=== PATIENT | female | born 1955 | race Caucasian/White ===

== ENCOUNTER 2017-11-18 15:28 | Emergency (ER) | payer OTHER ==
[2017-11-18] MEDS ORDERED: ONDANSETRON 4 MG/2 ML VIAL ONE (16:00)
[2017-11-18] MEDS ORDERED: HYDROmorphONE/DILAUDID 1 MG/ML INJ ONE (16:01)
[2017-11-18] MEDS ORDERED: HYDROmorphONE/DILAUDID 1 MG/ML INJ IVP ONE (16:03)
[2017-11-18] MEDS ORDERED: ONDANSETRON 4 MG/2 ML VIAL IVP ONE (16:03)
[2017-11-18] MEDS ORDERED: PROPOFOL 200 MG/20 ML VIAL ONE (16:15)
--- NOTE | 2017-11-18 16:16 | EDPHY ---
HPI/HX/ROS/PE/MDM Narrative: CHIEF COMPLAINT: Right ankle injury HPI: The patient is a 62 y/o female arriving with her son complaining of right ankle pain and deformity after she "took a bad step off a 6-8" high deck" this afternoon. She thinks she may have sprained her left ankle as well, but has been able to bear weight on that foot. She denies head strike, loss of consciousness, or other injuries from the fall. No preceding symptoms. She is normally healthy. Her last PO intake was some candy at 1300, no recent large meal. REVIEW OF SYSTEMS: Aside from elements discussed in the HPI, a comprehensive 10-point review of systems was reviewed and is negative. PMH: Hypothyroidism SOCIAL HISTORY: Son at bedside. Lives in [place]. Employed. PHYSICAL EXAM: General:Patient is alert, in no acute distress. ENT:Eyes are normal to inspection. ENT inspection normal. Neck: Normal inspection. Full range of motion. Respiratory:No respiratory distress. Breath sounds normal bilaterally. Cardiovascular: Regular rate and rhythm. Strong peripheral pulses. Normal cap refill. Abdomen:The abdomen is nontender to palpation. There are no peritoneal signs. Back: Normal to inspection. No tenderness to palpation. Skin: Normal color. No rash. Warm and dry. Extremities: Dislocated and externally rotated right ankle, otherwise normal appearance and full range of motion. Neuro: Oriented x3. Normal motor function. Normal sensory function. ED Course: This is a healthy 62 y/o female who presents with obvious deformity to her right ankle secondary to a mechanical fall this afternoon. Right ankle is externally rotated with tenting of the skin over the medial aspect. She has normal distal pulses and normal capillary refill. No other visible trauma on exam. She is neurovascularly intact distal to the injury. Plan for IV, x-ray, conscious sedation, reduction, and splinting. 1mg IV Dilaudid and 4mg IV Zofran administered for pain. X-ray: right ankle dislocation, distal third fibular fracture Discussed indications and risks of sedation with the patient. Due to PO intake about 3 hours prior to arrival, offered to delay treatment to reduce aspiration risk, but patient would prefer to proceed with sedation and reduction now. Procedure: Conscious sedation. Indication: Fracture/dislocation reduction The patient is an appropriate candidate to tolerate procedural sedation. The patient's vitals signs and mental status are appropriate. The risks, benefits and alternatives of the sedation were discussed with the patient. The patient is ASA classification 1. The patient's Mallampati airway score was 1 and the patient did meet the 3-3-2 airway measurements. A time out was completed. The patient was sedated with 80mg IV Propofol. The patient was monitored with continuous pulse oximetry, classroom monitor and end tidal CO2. There were no complications and no significant hypoxemia. I performed both the sedation and the procedure. The total time I spent at the bedside during the procedural sedation was 20 minutes. The patient was examined after the procedural sedation and has returned to their pre-sedation baseline with normal vital signs and a normal examination. Procedure: Reduction of Fracture Dislocation of Ankle Time-out completed immediately before the procedure. IV established. O2 administered. Placed on pulse oximeter and ETCO2 monitor. Neurovascular exam intact pre-procedure. Given 1mg IV Dilaudid for pain and 80mg IV Propofol for sedation. The right laterally-rotated ankle fracture/dislocation was reduced using traction. Reassessed post-procedure. Neurovascular status intact-normal Motor and sensory exam. Exam indicated reduction. Confirmed reduction on X-ray. Splint applied by myself/tech. The procedure was performed by myself, Dr. Buck. Post-reduction x-ray: better alignment of ankle joint, medial and posterior malleolus fractures, fracture of distal third of fibula Patient will be discharged home in splint with ankle fracture care and follow up instructions. She understands she needs to follow up with orthopedist in the next week. Script for Vicodin provided. Return precautions discussed. She is comfortable with this plan. MDM: This patient presents with ankle/leg fracture/dislocation. Her injuries were reduced under conscious sedation and her neurovascular status is normal. There is no evidence of compartment syndrome. I explained to her that she will likely need surgery for this injury and will need to follow-up with orthopedics. We discussed warning signs for infection and compartment syndrome. - Data Points Imaging Results: Imaging Impressions Tibia/Fibula X-Ray 11/18/17 15:35 Impression: 1. Dislocation of the ankle with 90 degree rotation of the talus relative to the distal articular surface of the tibia. 2. Segmental comminuted fracture of the fibula with moderate medial angulation. 3. Fracture of the distal tibia of unclear origin. Imaging: I viewed and interpreted images myself Medications Given: Discontinued Medications Fentanyl (Sublimaze) 25 mcg IVP EDNOW ONE Stop: 11/18/17 16:44 Last Admin: 11/18/17 16:46 Dose: 25 mcg Hydromorphone HCl (Dilaudid) 1 mg IVP EDNOW ONE Stop: 11/18/17 16:04 Last Admin: 11/18/17 16:06 Dose: 1 mg Ondansetron HCl (Zofran) 4 mg IVP EDNOW ONE Stop: 11/18/17 16:04 Last Admin: 11/18/17 16:05 Dose: 4 mg Propofol (Diprivan) 80 mg IVP EDNOW ONE Stop: 11/18/17 16:35 Last Admin: 11/18/17 16:30 Dose: 80 mg General Time Seen by Provider: 11/18/17 15:56 Initial Vital Signs: Initial Vital Signs Temperature (C) 37.0 C 11/18/17 15:31 Heart Rate 93 11/18/17 15:31 Respiratory Rate 20 11/18/17 15:31 Blood Pressure 156/102 H 11/18/17 15:31 O2 Sat (%) 95 11/18/17 15:31 O2 Delivery Mode [Post Room Air Procedure 1st] O2 Delivery Mode [Procedural Non-Rebreather Mask 1st] O2 Delivery Mode [.Immediate Non-Rebreather Mask Pre-Procedure] O2 Delivery Mode Room Air O2 (L/minute) 15 Allergies/Adverse Reactions: naproxen [From Aleve] Allergy (Verified 11/18/17 15:31) Sulfa (Sulfonamide Antibiotics) Allergy (Verified 11/18/17 15:31) cats Allergy (Intermediate, Uncoded 10/02/15 10:41) Itching Home Medications: Medication Instructions Recorded Albuterol Hfa Anes Only [Proair 2 puffs IH QID #1 mdi 10/02/15 Hfa Anes Only] Azithromycin [Zithromax 250 mg 250 mg PO DAILY #6 tab 10/02/15 tab(RX)] Synthroid 10/02/15 Hydrocodone/APAP 5/325 [[place] 1 - 2 tab PO Q6H PRN #20 tab 11/18/17 5/325 (*)] oxyCODONE/APAP 5/325 [Percocet 1 - 2 tab PO Q6H PRN #20 tab 11/18/17 5/325 (*)] Departure - Departure Disposition: Home, Routine, Self-Care Clinical Impression: Fracture dislocation of right ankle, Fibula fracture Condition: Good Instructions: Hydrocodone/Acetaminophen (By mouth), Ankle Fracture (ED), Ankle Dislocation (ED) Additional Instructions: 1. Keep splint clean, dry, and in place until follow up with orthopedist. 2. Use Vicodin for pain as needed over the next several days. This medication can make you drowsy and constipated. Do not use while driving. 3. Use crutches, do not bear weight on affected ankle. 4. Follow up with orthopedist in the next week. You may need surgery. 5. Return to the ED for severe pain, dramatic increase in swelling, weakness or numbness in your foot, or other worsening of condition. Referrals: Tootei Hung MD [Primary Care Provider] - As per Instructions Cullen Bishop MD [Medical Doctor] - As per Instructions Prescriptions: Hydrocodone/APAP 5/325 [[place] 5/325 (*)] 1 - 2 tab PO Q6H PRN #20 tab PRN Reason: Pain, Severe oxyCODONE/APAP 5/325 [Percocet 5/325 (*)] 1 - 2 tab PO Q6H PRN #20 tab PRN Reason: Pain, Severe Report Scribed for: Javon Buck Report Scribed by: Stephani Mendoza Date of Report: 11/18/17 Time of Report: 16:27 Physician Review and Approval Statement: Portions of this note were transcribed by an ED scribe. I personally performed the history, physical exam, and medical decision making; and confirm the accuracy of the information in the transcribed note.
[2017-11-18] MEDS ORDERED: PROPOFOL 200 MG/20 ML VIAL IVP ONE (16:34)
[2017-11-18] MEDS ORDERED: fentaNYL 100 MCG/2 ML INJ IVP ONE (16:43)
[2017-11-18] MEDS ORDERED: OXYCODONE/APAP 5/325MG PREPACK#4 BTL TAKEHOME ONE (17:16)
[2017-11-18] MEDS ORDERED: HYDROCOD/APAP 5/325 PREPACK#6 BTL TAKEHOME ONE (17:21)
[2017-11-18 17:31] VITALS: BP 120/92
== END 2017-11-18 17:34 | disposition home or self-care (01) ==
PROC: 0QSJXZZ Reposition Right Fibula, External Approach (ICD-10-PCS; principal; 2017-11-18)
DX: S82.831A Other fracture of upper and lower end of right fibula, initial encounter for closed fracture (principal); S93.04XA Dislocation of right ankle joint, initial encounter; W22.8XXA Striking against or struck by other objects, initial encounter
CPT/HCPCS: 96374; J1170; J2405; J2704; J3010

== ENCOUNTER → 2017-11-19 | Outpatient (CLI) | payer OTHER | LOC: FIMAGING 17:12 | PROVIDERS: ATTEND Orthopaedic Surgery | DX: S93.04XD Dislocation of right ankle joint, subsequent encounter (principal) ==